=== PATIENT | male | born 1980 | race Caucasian/White ===

== ENCOUNTER 2025-03-14 09:13 | Emergency (ER) | payer BC, SELFPAY ==
[~2025-03-14] VITALS: Ht 182.9 cm; Wt 103.2 kg
[2025-03-14] MEDS ORDERED: LORazepam 2 MG TAB PO PRN (10:25)
[2025-03-14] MEDS: LORazepam 2 MG/ML 1ML VIAL IV STA ×2 (10:38→12:41)
[2025-03-14] MEDS: ONDANSETRON 4MG 2ML VIAL IV ONE (10:38)
[2025-03-14] MEDS: NS (Normal Saline) 0.9% 1,000 ML IV ONE (10:38)
[2025-03-14] MEDS: THIAMINE 100 MG TAB PO SCH (10:39)
[2025-03-14] MEDS: FOLIC ACID 1MG TAB PO SCH (10:39)
[2025-03-14] MEDS: MULTIVITAMINS/MINERALS THERAP 1 TAB PO SCH (10:39)
[2025-03-14 10:44] LABS: BASO % 0.3 % (0.0-1.0); EOS % 0.1 % (0.0-3.0); HEMATOCRIT 49.1 % (42.0-52.0); HEMOGLOBIN 16.5 g/dl (13.5-17.5); LYMPH # 0.6 10^3/uL (1.5-5.0); MEAN CORPUSCULAR HEMOGLOBIN 33.1 pg (27.0-33.0); MEAN CORPUSCULAR HGB CONC 33.6 g/dl (32.0-36.5); MEAN CORPUSCULAR VOLUME 98.6 fl (80.0-96.0); MONO # 0.7 10^3/uL (0.0-0.8); MONO % 7.1 % (2.0-8.0); NEUTROPHILS # 7.9 10^3/uL (1.5-8.5); NEUTROPHILS % 86.1 % (36.0-66.0); PLATELET COUNT, AUTOMATED 143 10^3/uL (150-450); RED BLOOD COUNT 4.98 10^6/uL (4.30-6.10); WHITE BLOOD COUNT 9.2 10^3/uL (4.0-10.0)
[2025-03-14 12:10] LABS: ETHYL ALCOHOL (ETHANOL) 0.005 % (0.000-0.010)
[2025-03-14 12:12] LABS: SALICYLATE LEVEL < 3.0 MG/DL (<30)
[2025-03-14 12:19] LABS: ALBUMIN 3.8 G/DL (3.2-5.2); ALKALINE PHOSPHATASE 75 U/L (40-129); ALT/SGPT 78 U/L (7.0-40); AMPHETAMINES LEVEL URINE NEGATIVE (NEGATIVE); AST/SGOT 68 U/L (<34); BARBITURATES URINE NEGATIVE (NEGATIVE); BENZODIAZEPINES URINE NEGATIVE (NEGATIVE); BILIRUBIN,DIRECT 0.3 MG/DL (<0.4); BILIRUBIN,TOTAL 0.7 MG/DL (0.3-1.2); BLOOD UREA NITROGEN 11 MG/DL (9-23); CALCIUM LEVEL 8.8 MG/DL (8.5-10.1); CANNABINOIDS URINE NEGATIVE (NEGATIVE); CARBON DIOXIDE LEVEL 24 MMOL/L (20-31); CHLORIDE LEVEL 103 MMOL/L (98-107); COCAINE METABOLITE URINE NEGATIVE (NEGATIVE); CPK CREATINE PHOSPHOKINASE 71 U/L (46-171); CREATININE FOR GFR 0.69 MG/DL (0.70-1.30); GLOMERULAR FILTRATION RATE > 90.0 (>60); GLUCOSE, FASTING 109 MG/DL (60-100); METHADONE URINE NEGATIVE (NEGATIVE); OPIATES URINE NEGATIVE (NEGATIVE); PHENCYCLIDINE URINE NEGATIVE (NEGATIVE); POTASSIUM SERUM 4.1 MMOL/L (3.5-5.1); SODIUM LEVEL 140 MMOL/L (136-145); TOTAL PROTEIN 6.4 G/DL (5.7-8.2)
[2025-03-14] MEDS: LORazepam 1 MG TAB PO STA (13:01)
[2025-03-14] MEDS ORDERED: OXAZ15CA4 PO (13:12)
[2025-03-14 13:32] VITALS: BP 176/94; TEMP 98.5; O2SAT 95
[2025-03-14] MEDS ORDERED: THIAMINE 100 MG TAB PO SCH (21:00)
[2025-03-15] MEDS ORDERED: MULTIVITAMINS/MINERALS THERAP 1 TAB PO SCH (09:00)
[2025-03-15] MEDS ORDERED: FOLIC ACID 1MG TAB PO SCH (09:00)
== END 2025-03-14 13:30 | disposition home or self-care (01) ==
LOC: M ED 09:13
DX: F10.130 Alcohol abuse with withdrawal, uncomplicated (principal); Z88.8 Allergy status to other drugs, medicaments and biological substances
CPT/HCPCS: 80047; 80048; 80076; 80143; 80307; 82077; 82550; 84443; 85025; 93005; 93041; 94760; 96361; 96374; 96375; 99285; J2060; J2405

== ENCOUNTER 2025-09-06 11:33 | Emergency (ER) | payer BC ==
[~2025-09-06] VITALS: Ht 182.9 cm; Wt 100.0 kg
[~2025-09-06 11:33] MED LIST changes: -HOLTER MONITOR XX
[2025-09-06] MEDS ORDERED: HOLTER MONITOR XX (12:39)
[2025-09-06 12:46] VITALS: BP 142/88; TEMP 98.3; O2SAT 96
== END 2025-09-06 12:53 | disposition left against medical advice (07) ==
LOC: M ED 11:33 → EDBD 11:33 → M ED 12:53
DX: R42 Dizziness and giddiness (principal); Z53.21 Procedure and treatment not carried out due to patient leaving prior to being seen by health care provider

== ENCOUNTER → 2025-09-06 | Outpatient (CLI) | payer BC ==
[~2025-09-06] MED LIST: HOLTER MONITOR XX; KETO-204 PO; OXAZ15CA4 PO; PANT40TA29 PO
== END ==
LOC: M EKG 13:11
PROVIDERS: ATTEND Emergency Medicine
DX: R00.2 Palpitations (principal)